=== PATIENT | male | born 1985 | race African-American/Black ===

== ENCOUNTER 2018-01-04 16:59 | Observation (INO) | payer OTHER ==
[~2018-01-04] VITALS: Ht 170.2 cm; Wt 77.7 kg
[~2018-01-04 16:59] MED LIST: CRUTCHES; MOTRIN 800800 MG/TAB PO
[2018-01-04 17:45] LABS: BASO % 0.2 % (0.0-2.0); EOS % 0.1 % (0-4.0); GRAN # 6.4 (1.4-6.5); GRAN % 75.5 % (42.2-75.2); HEMOGLOBIN 10.7 g/dl (13.5-18.0); LYMPH # 1.4 (1.2-3.4); LYMPH % 16.4 % (20.0-51.0); MEAN CELL VOLUME 91 fl (80.0-100.0); MEAN CORPUSCULAR HEMOGLOBIN 29 pg (27.0-31.0); MEAN CORPUSCULAR HGB CONC 32 g/dl (33.0-37.0); MEAN PLATELET VOLUME 10.9 fl (7.4-10.4); MONO # 0.6 (0.1-0.6); MONO % 7.6 % (1.7-9.3); PLATELET COUNT 175 K/mm3 (130-400); RED BLOOD COUNT 3.65 M/mm3 (4.20-5.60); REDCELL DISTRIBUTION WIDTH-CV 13.2 % (11.5-14.5)
[2018-01-04 17:46] LABS: HEMATOCRIT 33.3 % (42.0-52.0)
[2018-01-04 17:56] LABS: ALBUMIN 3.7 gm/dL (3.5-5.0); BILIRUBIN,TOTAL 0.9 mg/dL (0.0-1.0); CALCIUM 7.5 mg/dL (8.4-10.2); CREATININE, serum 1.22 mg/dL (0.66-1.25); POTASSIUM 4.7 mmol/L (3.4-5.0); TOTAL PROTEIN 6.7 gm/dL (6.4-8.2)
[2018-01-04 18:46] LABS: COLLECTION METHOD CLEAN CATCH
[2018-01-04 18:53] LABS: MUCOUS Present /lpf; PH 5 (5-8); SQUAMOUS EPITHELIAL 0-2 /hpf; URINE APPEARANCE Clear; URINE BACTERIA None Seen /hpf; URINE BILIRUBIN Negative (NEGATIVE); URINE BLOOD 2+ (NEGATIVE); URINE COLOR Yellow; URINE GLUCOSE Negative (NEGATIVE); URINE KETONE Trace (NEGATIVE); URINE LEUKOCYTE ESTERASE Negative (NEGATIVE); URINE NITRATE Negative (NEGATIVE); URINE PROTEIN(semi-quant) 2+ (NEGATIVE); URINE RBC 0-2 /hpf; URINE UROBILINOGEN Negative (NEGATIVE)
[2018-01-04 20:58] LABS: CALCIUM 8.8 mg/dL (8.4-10.2); CREATININE, serum 1.38 mg/dL (0.66-1.25); POTASSIUM 4.3 mmol/L (3.4-5.0)
[2018-01-04 23:21] VITALS: BP 122/73; PULSE 68; TEMP 98.4
[2018-01-05 03:43] VITALS: BP 111/64; PULSE 80; TEMP 97.9
[2018-01-05 07:31] LABS: ALBUMIN 2.8 gm/dL (3.5-5.0); BILIRUBIN,TOTAL 0.1 mg/dL (0.0-1.0); CALCIUM 7.5 mg/dL (8.4-10.2); CREATININE, serum 1.16 mg/dL (0.66-1.25); MAGNESIUM 1.8 mg/dL (1.6-2.3); PHOSPHOROUS 2.7 mg/dL (2.5-4.5); POTASSIUM 4.1 mmol/L (3.4-5.0); TOTAL PROTEIN 5.4 gm/dL (6.4-8.2); URIC ACID 5.8 mg/dL (3.5-8.5)
[2018-01-05 08:07] VITALS: BP 119/66; PULSE 72; TEMP 98.7
[2018-01-05 11:20] VITALS: BP 119/78; PULSE 67; TEMP 97.9
[2018-01-05 17:13] VITALS: BP 130/71; PULSE 85; TEMP 98.3
[2018-01-05 17:37] LABS: COLLECTION METHOD CLEAN CATCH
[2018-01-05 17:40] LABS: CALCIUM 7.7 mg/dL (8.4-10.2); CREATININE, serum 0.96 mg/dL (0.66-1.25); POTASSIUM 4.1 mmol/L (3.4-5.0)
[2018-01-05 17:46] LABS: SQUAMOUS EPITHELIAL None Seen /hpf; URINE BACTERIA None Seen /hpf; URINE RBC 0-2 /hpf; URINE WBC 0-2 /hpf
[2018-01-05 17:52] LABS: PH 5 (5-8); URINE APPEARANCE Clear; URINE BILIRUBIN Negative (NEGATIVE); URINE BLOOD Negative (NEGATIVE); URINE COLOR Straw; URINE GLUCOSE Negative (NEGATIVE); URINE KETONE Negative (NEGATIVE); URINE LEUKOCYTE ESTERASE Negative (NEGATIVE); URINE NITRATE Negative (NEGATIVE); URINE PROTEIN(semi-quant) Negative (NEGATIVE); URINE UROBILINOGEN Negative (NEGATIVE)
[2018-01-05 20:18] VITALS: BP 124/68; PULSE 84; TEMP 98.2
[2018-01-06 04:58] VITALS: BP 129/73; PULSE 76; TEMP 98.4
[2018-01-06 07:06] LABS: CALCIUM 7.8 mg/dL (8.4-10.2); CREATININE, serum 1.01 mg/dL (0.66-1.25); POTASSIUM 3.9 mmol/L (3.4-5.0)
== END 2018-01-06 13:36 | disposition home or self-care (01) ==
LOC: COL.ER 16:59 → MEDICAL 21:45
PROVIDERS: Emergency Medicine; Internal Medicine; Student in an Organized Health Care Education/Training Program
DX: M62.82 Rhabdomyolysis (principal); N17.9 Acute kidney failure, unspecified; E86.0 Dehydration; E83.51 Hypocalcemia; R74.0 Nonspecific elevation of levels of transaminase and lactic acid dehydrogenase [LDH]; D64.0 Hereditary sideroblastic anemia; Z84.1 Family history of disorders of kidney and ureter
CPT/HCPCS: 99223-AI; G0378; G0379; J2060; J7030